=== PATIENT | female | born 1970 | race Caucasian/White ===

== ENCOUNTER → 2017-04-25 13:58 | Outpatient (CLI) | payer MEDICARE, SELFPAY ==
--- NOTE | 2017-04-25 14:05 | US_ITS ---
STUDY: THYROID ULTRASOUND REASON FOR EXAM: Female, 47 years old. Multinodular goiter. TECHNIQUE: Ultrasound evaluation of the thyroid was performed with real-time and static nunn-scale imaging. COMPARISON: None. FINDINGS: RIGHT LOBE: The right lobe of the thyroid gland measures 10.9 x 4.2 x 4.3 cm. There is a heterogeneous echotexture. There is nodularity of the right thyroid gland. There is a partially cystic nodule lesion within the right lobe of thyroid measuring 2.1 x 1.3 x 1.6 cm. A second nodule within the midpole the right lobe of thyroid measures 1.9 x 2.0 x 2.0 cm. A third nodule is visible measuring 2.2 x 2.0 x 1.2 cm. A fourth nodule which also appears have a cyst within it measures 2.9 x 2.6 x 1.7 cm. LEFT LOBE: The left lobe of the thyroid gland measures 8.3 x 3.5 x 3.4 cm. There is a heterogeneous echotexture. The thyroid appears diffusely nodular. One nodular area measured is 1.7 x 1.0 x 0.8 cm. This appears hyperechoic. ISTHMUS: The isthmus measures 6 millimeters.. The regional lymph nodes are normal. US/Thyroid IMPRESSION: Diffuse enlargement of the thyroid with multiple nodules suggests multinodular goiter. Electronically Signed: Sammi Balbuena MD at 9:48 EST , Service support ,
== END ==
PROVIDERS: Family Provider Physician Assistant; PCP Physician Assistant; Visit Provider Physician Assistant
DX: E04.2 Nontoxic multinodular goiter (principal)
CPT/HCPCS: 76536

== ENCOUNTER → 2018-06-17 07:40 | Outpatient (CLI) | payer MEDICARE, SELFPAY ==
--- NOTE | 2018-06-17 07:50 | US_ITS ---
STUDY: THYROID ULTRASOUND REASON FOR EXAM: Female, 48 years old. Goiter TECHNIQUE: Ultrasound evaluation of the thyroid was performed with real-time and static nunn-scale imaging. COMPARISON: 04/25/2017 FINDINGS: RIGHT LOBE: The right lobe of the thyroid gland measures 10.3 x 4.2 x 4.4 cm. There is a heterogeneous echotexture. There is nodularity of the right thyroid gland. Stable appearance of 4 previously described nodules. No new suspicious nodule or significant change noted. LEFT LOBE: The left lobe of the thyroid gland measures 8.3 x 4.1 x 3.5 cm. There is a heterogeneous echotexture. The thyroid appears diffusely nodular. 2 stable nodules in the lower pole noted. ISTHMUS: The isthmus measures 7 millimeters.. The regional lymph nodes are normal. US/Thyroid IMPRESSION: Diffuse enlargement of the thyroid with multiple nodules suggests multinodular goiter. No significant interval change Electronically Signed: Kevin Bowling MD at 9:34 EDT , Service support ,
== END ==
PROVIDERS: Family Provider Physician Assistant; PCP Physician Assistant; Referring Provider Physician Assistant; Visit Provider Physician Assistant
DX: E04.2 Nontoxic multinodular goiter (principal)
CPT/HCPCS: 76536

== ENCOUNTER → 2019-08-16 15:57 | Outpatient (CLI) | payer MEDICARE, SELFPAY ==
--- NOTE | 2019-08-16 16:04 | US_ITS ---
STUDY: PELVIC ULTRASOUND CLINICAL: Female, 49 years old. Fullness in pelvis. TECHNIQUE: Transabdominal. COMPARISON: None. FINDINGS: The uterus is anteverted, midline and measures 5.9 x 3.5 x 2.5 cm. Endometrium measures 4 mm in diameter and is hyperechoic. No fibroids. . Right ovary measures 2.0 x 1.3 x 1.1 cm and is normal. Left ovary measures 2.5 x 1.8 x 1.2 cm and is normal. No free fluid in cul-de-sac. Bladder volume is 153 mL. Images of the bladder are unremarkable. US/Pelvic (Non ) IMPRESSION: Normal exam. Electronically Signed: Reynold Heredia MD at 6:54 EDT , Service support ,
--- NOTE | 2019-08-16 16:04 | US_ITS ---
STUDY: THYROID ULTRASOUND REASON FOR EXAM: Female, 49 years old. MULTINODULAR GOITER TECHNIQUE: Ultrasound evaluation of the thyroid was performed with real-time and static nunn-scale imaging. COMPARISON: Multiple recent studies, the most recent from 06/17/2018 FINDINGS: RIGHT LOBE: The right lobe of the thyroid gland measures 6.5 x 4.6 x 3.3 cm. There is a heterogeneous echotexture. There is a 1.6 x 1.4 x 1.1 cm cyst in the lower pole. LEFT LOBE: The left lobe of the thyroid gland measures 6.6 x 3.4 x 2.6 cm. There is a heterogeneous echotexture. 2 stable hypoechoic nodules largest measures 1.1 x 0.7 x 0.5 cm. ISTHMUS: The isthmus measures 6.0 mm. The regional lymph nodes are normal. Hypervascularity noted in the right and left thyroid lobes. US/Thyroid IMPRESSION: Thyroid gland is again noted to be diffusely enlarged and heterogeneous with stable hypoechoic left lobe nodules and right lobe cyst. Findings are again suggestive of goiter. Hyperemia noted in both thyroid lobes. No significant interval change Electronically Signed: Kevin Bowling MD at 8:06 EDT , Service support ,
== END ==
PROVIDERS: PCP Physician Assistant; Referring Provider Physician Assistant; Visit Provider Physician Assistant
DX: E04.2 Nontoxic multinodular goiter (principal); R19.00 Intra-abdominal and pelvic swelling, mass and lump, unspecified site
CPT/HCPCS: 76536; 76856